=== PATIENT | female | born 1955 | race Caucasian/White ===

== ENCOUNTER → 2017-06-26 | Outpatient (CLI) | payer BC ==
--- NOTE | 2017-06-26 17:32 | Diagnostic Imaging Report ---
Bilateral screening mammogram 2D views with tomosynthesis. The current study was also evaluated with a Computer Aided Detection (CAD) system. INDICATION: Screening. No current complaints stated on the questionnaire. COMPARISON: 09/01/2016. FINDINGS: The breasts are composed of heterogeneously dense parenchyma which may decrease mammographic sensitivity. There is an oval asymmetry measuring 8 mm seen in the central slightly superior aspect of the right MLO view which persists on the tomographic evaluation. No definite correlate on the CC projection. The left breast demonstrates no definite change. IMPRESSION: Focal compression view and ultrasound evaluation for asymmetry along the right MLO view is recommended. ACR BI-RADS Category 0: Incomplete. (Needs additional imaging evaluation). Result letter will be mailed to the patient. Note: At least 10% of breast cancer is not imaged by mammography. Dictated by: Dictated on workstation # [id number]
== END ==
LOC: RAD 10:13
PROVIDERS: ATTEND Obstetrics & Gynecology
DX: Z12.31 Encounter for screening mammogram for malignant neoplasm of breast (principal); N64.89 Other specified disorders of breast
CPT/HCPCS: 77067

== ENCOUNTER → 2017-07-04 | Outpatient (CLI) | payer BC ==
--- NOTE | 2017-07-04 09:13 | Diagnostic Imaging Report ---
EXAMINATION: Right breast diagnostic mammogram with a Computer Aided Detection (CAD) system. INDICATION: Asymmetry along the central slightly superior aspect of the right MLO view seen on the mammogram from 06/26/2017. FINDINGS: The previously seen asymmetry is evaluated with focal compression view which demonstrates a less prominent appearance and suggestion of summation artifact of parenchyma. The true lateral view demonstrates no definitive correlate. IMPRESSION: Less prominent asymmetry seen on this additional evaluation in favor of summation artifact of parenchyma. An ultrasound evaluation is pending. ACR BI-RADS Category 0: Incomplete. (Needs additional imaging evaluation). Result letter will be mailed to the patient. Note: At least 10% of breast cancer is not imaged by mammography. Dictated by: Dictated on workstation # [id number]
--- NOTE | 2017-07-04 09:17 | Diagnostic Imaging Report ---
EXAMINATION: Right breast ultrasound. INDICATION: Asymmetry in the right breast on the MLO view. FINDINGS: The four-quadrants and retroareolar region of the right breast was scanned with no underlying abnormality seen. IMPRESSION: Negative exam. The asymmetry seen on mammography is likely related to summation artifact of parenchyma. Return to annual screening. ACR BI-RADS Category 1: Negative. Dictated by: Dictated on workstation # [id number]
== END ==
LOC: RAD 08:01
PROVIDERS: ATTEND Obstetrics & Gynecology
DX: N64.89 Other specified disorders of breast (principal)
CPT/HCPCS: 76641

== ENCOUNTER → 2019-01-21 | Outpatient (CLI) | payer BC ==
--- NOTE | 2019-01-21 12:49 | Diagnostic Imaging Report ---
Indication: Routine screening. Comparison is made with prior mammograms from 06/26/2017 and 09/01/2016. 2-D and 3-D bilateral screening mammography was performed with CAD. Scattered fibroglandular densities are identified bilaterally. The parenchymal pattern is stable. No mass or malignant appearing microcalcifications are seen. The axillae are unremarkable. Impression: BI-RADS category one No mammographic features suspicious for malignancy are identified. ACR BI-RADS Category 1: Negative. Result letter will be mailed to the patient. Note: At least 10% of breast cancer is not imaged by mammography. Dictated by: Dictated on workstation # [id number]
== END ==
LOC: RAD 11:05
PROVIDERS: ATTEND Obstetrics & Gynecology
DX: Z12.31 Encounter for screening mammogram for malignant neoplasm of breast (principal)
CPT/HCPCS: 77067

== ENCOUNTER → 2020-05-11 | Outpatient (CLI) | payer BC ==
--- NOTE | 2020-05-11 14:35 | Diagnostic Imaging Report ---
INDICATION: Postmenopausal. COMPARISON: There are no prior studies for comparison. FINDINGS: The bone mineral density of the hips and spine was measured. The T-score for the spine is -2.7. This does indicate osteoporosis. The total T-score for the left hip is -1.6 and for the right hip -1.4. The T-score for the left femoral neck is -1.8 and for the right femoral neck -1.6. All of these values fall within the range of osteopenia. AP Spine L1-L4: [BMD (g/cm2): 0.878] [T-Score: -2.7] [Z-Score: -0.8] [BMD Previous: na] [BMD % Change: na] LT Hip Neck: [BMD (g/cm2): 0.790] [T-Score: -1.8] [Z-Score: -0.2] LT Hip Total: [BMD (g/cm2):0.807] [T-Score:-1.6] [Z-Score: -0.2] [BMD Previous: na] [BMD % Change: na] RT Hip Neck: [BMD (g/cm2):0.814] [T-Score:-1.6] [Z-Score:0.0] RT Hip Total: [BMD (g/cm2):0.931] [T-score:-1.4] [Z-Score:0.0] [BMD Previous:na] [BMD % Change:na] *Indicates significant change from prior examination based on 95% confidence level. World Health Organization criteria for BMD interpretation classify patients as Normal (T-score at or above -1.0), Osteopenic (T-score between -1.0 and -2.5) or Osteoporotic (T-score at or below -2.5). LIMITATIONS AND MODIFICATION: None. FRACTURE RISK (FRAX SCORE): The ten year probability of (%): Major Osteoporotic Fracture: [14.7] Hip Fracture: [2.0] IMPRESSION: 1. The T-score for the spine does indicate osteoporosis. 2. The bone mineral density of the hips and femoral necks falls within the range of osteopenia. 3. See below National Osteoporosis Foundation guidelines on when to potentially initiate pharmacologic therapy. Based on the National Osteoporosis Foundation Guidelines, pharmacologic treatment should be initiated in any of the following, unless clinical conditions suggest otherwise: * Any patient with prior fragility fracture of the hip or vertebrae. A spine fracture indicates 5X risk for subsequent spine fracture and 2X risk for subsequent hip fracture. * Osteoporosis (T-score <-2.5). * Postmenopausal women and men age 50 and older with low bone mass/osteopenia (T-score between -1.0 and -2.5) by DXA and 10-year major osteoporotic fracture greater than 20% or a 10-year probability of hip fracture greater than 3%. These fracture risks are supplied above in the FRAX score, if applicable. * Clinician judgement and/or patient preferences may indicate treatment for people with 10-year fracture probabilities above or below these levels. Dictated by: Dictated on workstation # [id number]
--- NOTE | 2020-05-11 15:12 | Diagnostic Imaging Report ---
INDICATION: Routine screening. COMPARISON is made with prior mammograms from 01/21/2019 and 06/26/2017. 2-D and 3-D bilateral screening mammography was performed with CAD. Both breasts remain heterogeneously dense, limiting the sensitivity of mammography. The parenchymal pattern appears stable. No dominant mass or malignant appearing microcalcifications are seen. Axillae are unremarkable. IMPRESSION: BI-RADS Category 1 No mammographic features suspicious for malignancy are identified. ACR BI-RADS Category 1: Negative. Result letter will be mailed to the patient. Note: At least 10% of breast cancer is not imaged by mammography. Dictated by: Dictated on workstation # [id number]
== END ==
LOC: RAD 12:53
PROVIDERS: ATTEND Obstetrics & Gynecology
DX: Z12.31 Encounter for screening mammogram for malignant neoplasm of breast (principal)
CPT/HCPCS: 77063; 77067; 77080

== ENCOUNTER → 2020-07-16 | Outpatient (CLI) | payer BC ==
--- NOTE | 2020-07-16 17:15 | Diagnostic Imaging Report ---
EXAMINATION: Magnetic resonance imaging of the right knee without intravenous contrast DATE: July 16, 2020. COMPARISON: None. INDICATION: 65-year-old female, right knee pain. TECHNIQUE: Multiplanar, multisequence non contrast enhanced MR imaging was accomplished. FINDINGS: MENISCI: There is a multidirectional tear involving the body, posterior horn, and posterior root attachment of the medial meniscus including full-thickness radially-oriented components involving the posterior root attachment of the medial meniscus. There is 5 mm medial meniscal extrusion. There is signal in the anterior horn and body of the lateral meniscus suspicious for tear. LIGAMENTS AND TENDONS: There is mucoid degeneration of the anterior cruciate ligament with intact ligament fibers. The posterior cruciate ligament is intact. The medial collateral ligament is intact. The iliotibial band, mid third lateral capsular ligament, fibular collateral ligament, biceps femoris tendon and conjoined tendon are intact. The quadriceps tendon and patella ligament are intact. JOINT: There is mild thinning and irregularity of the cartilage of the medial patellar facet. There is very mild thinning of the medial compartment cartilage. There is a small knee joint effusion. There is no identified intra-articular body or prominent synovitis. BONE: There is no acute fracture, bone contusion, or evidence of osteonecrosis. BURSAE AND SOFT TISSUES: There is a Lynn's cyst. There is nonspecific soft tissue edema adjacent to the upper aspect of the knee joint capsule. IMPRESSION: 1. Complex tear involving the body, posterior horn, and posterior root attachment of the medial meniscus with medial meniscal extrusion. 2. Probable tear of the anterior horn and body of the lateral meniscus. Mucoid degeneration of the anterior cruciate ligament with intact ligament fibers. Additional ligaments and tendons are intact. 3. Mild medial and patellofemoral compartment osteoarthritis. Small knee joint effusion. 4. No acute fracture or bone contusion. 5. Lynn's cyst. Dictated by: Dictated on workstation # [id number]
== END ==
LOC: RAD 14:45
PROVIDERS: ATTEND Orthopaedic Surgery
DX: S83.231A Complex tear of medial meniscus, current injury, right knee, initial encounter (principal); S83.281A Other tear of lateral meniscus, current injury, right knee, initial encounter; M23.611 Other spontaneous disruption of anterior cruciate ligament of right knee; M17.11 Unilateral primary osteoarthritis, right knee; M71.21 Synovial cyst of popliteal space [Baker], right knee; X58.XXXA Exposure to other specified factors, initial encounter
CPT/HCPCS: 73721

== ENCOUNTER → 2021-06-02 | Outpatient (CLI) | payer MEDICARE, BC ==
--- NOTE | 2021-06-02 12:03 | Diagnostic Imaging Report ---
Indication: Routine screening. Comparison is made with prior mammogram 05/11/2020 and 01/21/2019. 2-D and 3-D bilateral screening mammography was performed with CAD. Scattered fibroglandular densities are identified bilaterally. The parenchymal pattern is stable. No mass or malignant-appearing microcalcifications are seen. Axillae are unremarkable. IMPRESSION: BI-RADS Category 1 No mammographic features suspicious for malignancy are identified. ACR BI-RADS Category 1: Negative. Result letter will be mailed to the patient. Note: At least 10% of breast cancer is not imaged by mammography. Dictated by: Dictated on workstation # [id number]
== END ==
LOC: RAD 10:15
PROVIDERS: ATTEND Family Medicine
DX: Z12.31 Encounter for screening mammogram for malignant neoplasm of breast (principal)
CPT/HCPCS: 77063; 77067

== ENCOUNTER → 2022-11-02 | Outpatient (CLI) | payer MEDICARE ==
--- NOTE | 2022-11-03 09:22 | Diagnostic Imaging Report ---
Indication: Routine screening. Comparison is made with prior mammogram from 06/02/2021 and 05/11/2020. 2-D and 3-D bilateral screening mammography was performed with CAD. CAD is utilized. The current study was also evaluated with a Computer Aided Detection (CAD) system. Scattered fibroglandular densities are identified bilaterally. The overall parenchymal pattern is stable. No mass or malignant-appearing microcalcifications are seen. Axillae are unremarkable. IMPRESSION: BI-RADS Category 1 No mammographic features suspicious for malignancy are identified. ACR BI-RADS Category 1: Negative. Result letter will be mailed to the patient. Note: At least 10% of breast cancer is not imaged by mammography. Dictated by: Dictated on workstation # [id number]
== END ==
LOC: RAD 14:23
PROVIDERS: ATTEND Nurse Practitioner Family
DX: Z12.31 Encounter for screening mammogram for malignant neoplasm of breast (principal)
CPT/HCPCS: 77063; 77067

== ENCOUNTER → 2022-11-07 | Outpatient (CLI) | payer MEDICARE ==
--- NOTE | 2022-11-07 16:26 | Diagnostic Imaging Report ---
INDICATION: 67-year-old female, postmenopausal. Screening for osteoporosis. COMPARISON: May 11, 2020. FINDINGS: AP Spine L1-L4: [BMD (g/cm2): 0.921] [T-Score: -2.3] [Z-Score: -0.4] [BMD Previous: 0.878] [BMD % Change: 4.9*] LT Hip Neck: [BMD (g/cm2): 0.790] [T-Score: -1.8] [Z-Score: -0.1] LT Hip Total: [BMD (g/cm2):0.858] [T-Score:-1.2] [Z-Score: 0.3] [BMD Previous: 0.807] [BMD % Change: 6.3] RT Hip Neck: [BMD (g/cm2):0.817] [T-Score:-1.6] [Z-Score:0.1] RT Hip Total: [BMD (g/cm2):0.847] [T-score:-1.3] [Z-Score:0.2] [BMD Previous:0.831] [BMD % Change:1.9] *Indicates significant change from prior examination based on 95% confidence level. World Health Organization criteria for BMD interpretation classify patients as Normal (T-score at or above -1.0), Osteopenic (T-score between -1.0 and -2.5) or Osteoporotic (T-score at or below -2.5). LIMITATIONS AND MODIFICATION: None. FRACTURE RISK (FRAX SCORE): The ten year probability of (%): Major Osteoporotic Fracture: [15.2] Hip Fracture: [2.3] IMPRESSION: 1. Osteopenia (Low bone mass). 2. There has been a statistically significant increase in BMD since prior exam, detailed above. 3. See below National Osteoporosis Foundation guidelines on when to potentially initiate pharmacologic therapy. Based on the National Osteoporosis Foundation Guidelines, pharmacologic treatment should be initiated in any of the following, unless clinical conditions suggest otherwise: * Any patient with prior fragility fracture of the hip or vertebrae. A spine fracture indicates 5X risk for subsequent spine fracture and 2X risk for subsequent hip fracture. * Osteoporosis (T-score <-2.5). * Postmenopausal women and men age 50 and older with low bone mass/osteopenia (T-score between -1.0 and -2.5) by DXA and 10-year major osteoporotic fracture greater than 20% or a 10-year probability of hip fracture greater than 3%. These fracture risks are supplied above in the FRAX score, if applicable. * Clinician judgement and/or patient preferences may indicate treatment for people with 10-year fracture probabilities above or below these levels. Dictated by: Dictated on workstation # [id number]
== END ==
LOC: RAD 11:00
PROVIDERS: ATTEND Family Medicine
DX: M85.80 Other specified disorders of bone density and structure, unspecified site (principal)
CPT/HCPCS: 77080

== ENCOUNTER → 2022-11-17 | Outpatient (CLI) | payer MEDICARE ==
--- NOTE | 2022-11-17 16:50 | Diagnostic Imaging Report ---
PROCEDURE: US Thyroid. TECHNIQUE: Multiple real-time grayscale images were obtained of the thyroid in various projections. INDICATION: Other specified abnormal findings of blood chemistry. COMPARISON: None available. FINDINGS: Right thyroid lobe: The right thyroid lobe measures 4.1 x 0.9 x 1.5 cm. It Demonstrates mild heterogeneous echogenicity with increased vascularity. No nodule is present. Isthmus: The thyroid isthmus measures 0.1 cm and is without nodule. Left thyroid lobe: The left thyroid lobe measures 3.6 x 1.4 x 1.3 cm. There is a mixed solid and cystic nodule that is wider than tall measuring up to 0.8 cm and has no echogenic foci (TI RADS 3). Increased vascularity is present throughout the left thyroid lobe. IMPRESSION: 1. Hypervascular thyroid may be due to thyroiditis. 2. Mildly suspicious left thyroid nodule is probably benign and does not require dedicated follow-up imaging due to small size. ACR TI-RADS: TR3 . TI-RADS Recommendations:TR3 - Mildly Suspicious. FNA if > 2.5 cm. Follow if > 1.5 cm at 1, 3, 5 years. Dictated by: Dictated on workstation # [id number]
== END ==
LOC: RAD 11:33
PROVIDERS: ATTEND Family Medicine
DX: R79.89 Other specified abnormal findings of blood chemistry (principal); Z83.49 Family history of other endocrine, nutritional and metabolic diseases
CPT/HCPCS: 76536

== ENCOUNTER → 2022-12-14 | Outpatient (CLI) | payer MEDICARE ==
--- NOTE | 2022-12-15 13:18 | Diagnostic Imaging Report ---
INDICATION: Abnormal thyroid blood chemistry with hypervascular thyroid gland on ultrasound and mildly suspicious left thyroid nodule. TECHNIQUE/FINDINGS: 200 ?Ci of I-123 orally. 4 hour uptake: 33.48% (normal values 8-16%) 24 uptake: 64.03% (normal values 10-30%) Imaging of the thyroid bed demonstrates a slightly smaller left thyroid lobe compared to the right thyroid lobe. There is otherwise relatively symmetric uptake throughout both lobes of the thyroid gland. No definitive abnormal uptake to suggest a hot or cold nodule. IMPRESSION: 1. Rather marked, abnormally elevated 24-hour thyroid uptake at 64%. 2. Normal appearing thyroid scan. Dictated by: Dictated on workstation # [id number]
== END ==
LOC: CARD 10:54
PROVIDERS: ATTEND Family Medicine
DX: E07.9 Disorder of thyroid, unspecified (principal); E04.1 Nontoxic single thyroid nodule; R94.6 Abnormal results of thyroid function studies
CPT/HCPCS: 78014; A9516